=== PATIENT | female | born 1980 | race Asian ===

== ENCOUNTER 2017-02-09 20:10 | Emergency (ER) | payer MEDICAID ==
[2017-02-09 20:21] VITALS: TEMP 97.3
--- NOTE | 2017-02-09 20:49 | EDPHY ---
H & P Time Seen by Provider: 02/09/17 20:44 HPI/ROS: This patient describes a history of redness to the eponychial region of her left 3rd finger-middle finger with moderate pain associated with it. There has been no purulent discharge. By swelling redness has increased over the past 24 hours. She has some dry skin along the eponychium and paronychia but denies picking at. She did however try poking with a needle thinking that might be pus but there is no purulence. She drove herself here by private vehicle. She notes no exacerbating factors for her symptoms. ROS: No fevers. No other constitutional symptoms Musculoskeletal: No bony pain in the affected finger. Neuro: No numbness or tingling. 5 point ROS is otherwise negative. Past Medical/Surgical History: Otherwise healthy Smoking Status: Never smoked Physical Exam: Physical Exam Vital signs are normal. General: No acute distress Cardiac: Brisk capillary refill is intact throughout. Skin: No rash or pallor. Extremities: Atraumatic normal except for left 3rd finger that exam is notable for mild eponychial erythema and swelling along with tenderness. Minimal paronychial redness. No fluctuance. No purulence. No bony tenderness. She retains full range of motion of the affected finger. Nail bed appears normal. Neuro: Alert with no sensorimotor deficits in the affected finger. Initial differential diagnosis: Eponychium, doubt herpetic gallito Constitutional: Initial Vital Signs Temperature (C) 36.3 C 02/09/17 20:16 Heart Rate 65 02/09/17 20:16 Respiratory Rate 18 02/09/17 20:16 Blood Pressure 123/66 H 02/09/17 20:16 O2 Sat (%) 99 02/09/17 20:16 O2 Delivery Mode Room Air Allergies/Adverse Reactions: No Known Allergies Allergy (Unverified 02/09/17 20:15) Home Medications: Medication Instructions Recorded Cephalexin [Keflex (*)] 500 mg PO TID #30 cap 02/09/17 MDM/Departure - Depart Disposition: Home, Routine, Self-Care Clinical Impression: Eponychia Condition: Good Instructions: Paronychia (ED) Additional Instructions: Diagnosis: Eponychium (finger infection) Plan: Hot water soaks to 3 times a day with soapy water. Use Epsom salt he started getting a discharge. Keflex antibiotic Ibuprofen Tylenol for pain needed Return for any significant worsening despite the treatment plan. Prescriptions: Cephalexin [Keflex (*)] 500 mg PO TID #30 cap Referrals: NONE *PRIMARY CARE P,. [Primary Care Provider] - As per Instructions
[2017-02-09] MEDS ORDERED: CEPHALEXIN 500 MG CAP PO ONE (21:03)
[2017-02-09 21:17] VITALS: BP 94/62; PULSE 76; RESP 16; O2SAT 97
== END 2017-02-09 21:16 | disposition home or self-care (01) ==
LOC: CED 20:10
DX: Q84.6 Other congenital malformations of nails (principal)